=== PATIENT | female | born 1995 | race Caucasian/White ===

== ENCOUNTER 2018-07-17 10:15 | Emergency (ER) | payer MEDICAID, SELFPAY ==
[2018-07-17 10:25] VITALS: BP 105/73; PULSE 68; RESP 16; TEMP 36.8; O2SAT 99
--- NOTE | 2018-07-17 10:41 | DI.RAD_ITS ---
SYMPTOM/DIAGNOSIS: FELL ON OUTSTRETCHED HAND, PAIN LEFT HAND AND LEFT WRIST: There is an oblique nondisplaced, intra-articular fracture of the lateral aspect of the distal left radius. There is a nondisplaced fracture of the ulnar styloid process. No other fracture or dislocation is seen in the left wrist or hand. IMPRESSION: Fractures involving the distal radius and ulna as described above.
--- NOTE | 2018-07-17 10:42 | W.ED.GENAD ---
Discharge Plan Disposition Patient Disposition: HOME Condition: Fair Discharge Details Chief Complaint: Orthopedic Clinical Impression: Distal radial fracture Primary Care Provider: Blanka Funes ED Provider: Enriqueta Maynard Home Meds and New Rx's Prescriptions: Continue medroxyprogesterone [Depo-Provera] 150 MG/1 ML syringe 150 mg IM [id number] Qty: 1 RF: 4 melatonin-pyridoxine (vit B6) [Melatonin (with B6)] 1 EACH tablet 1 tab PO HS RF: 0 acetaminophen [Tylenol] 325 MG tablet 650 mg PO Q4H PRN PRNQty: 30 RF: 0 ibuprofen 400 MG tablet 400 mg PO Q6H PRN PRNQty: 30 RF: 0 Discharge Instructions Instructions: Wrist Fracture in Adults (ED) Additional Instructions: Encourage rest, ice, elevation. Tylenol and/or ibuprofen as needed for discomfort. You may take 600mg Ibuprofen every 6 hours, 1,000mg of Tylenol every 6 hours. Keep splint on until evaluated by orthopedics. Please call orthopedics tomorrow morning to schedule follow-up. If you develop new or worsening symptoms please seek care urgently once again Referrals: Vinny Brown MD [ [facility] STAFF PHYSICIAN] - 1 week ([phone]) Discharge Data Discharge Date/Time-TO BE ENTERED AT DEPARTURE: 07/17/18 12:30 Medical Decision Making [facility] Narrative Medical decision making narrative: Patient is a 22-year-old xhcbq-mnba-wgjeoaxj female presenting today with chief complaint of left wrist pain. She reports that prior to arrival she was going over a rock when she fell on her outstretched left hand. Since that time has been having pain along the radial side of her left wrist that extends into her hand. She denies any altered sensation. Denies other injury at the fall. Did not strike her head, no loss of consciousness. Denies any numbness or tingling. He does note a abrasion to the anterior radial side of the left wrist. Has not had anything as of yet. Nursing staff is immobilized the wrist and applied ice. We will give Tylenol and ibuprofen obtain imaging XR reviewed by radiologist and significant for nondisplaced fractures of the distal radius and ulna. Discussed findings with the patient. Patient will be placed in splint for immobilization. Encouraged rest, ice, elevation. Tylenol and/or Motrin as needed for discomfort. Patient was fitted with a plaster splint, evaluated after with noted to be neurovascularly intact. ADvised f/u with orthopedics, she will contact them tomorrow. Discussed new/worsening symptoms and when to seek care urgently once again. All of her questions and concerns were addressed, she isin agreement with this plan. HPI - General Adult General Mode of arrival: ambulatory. Date/Time Provider Initiated Documentation: 07/17/18 10:40. Limitations to Documentation: no limitations. Information obtained by: patient. History of Present Illness 22 year old F presents to the emergency department with the chief complaint of Left wrist and hand pain, described as moderate, Quality is described as stabbing and aching, and is localized to the left and upper extremity. Patient reports no radiation. Patient started experiencing this minute(s) (30) and it has been constant. Immobilization improves symptom(s), Movement worsens symptoms . Patient notes no other symptoms.. Patient did receive the following treatments prior to arrival, none Related Data Home Medications Medication Instructions Recorded Confirmed melatonin-pyridoxine (vit B6) 1 tab PO HS 01/08/16 07/17/18 [Melatonin (with B6)] Previous Rx's Medication Instructions Recorded acetaminophen [Tylenol] 650 mg PO Q4H PRN PRN #30 tab 11/29/17 ibuprofen 400 mg PO Q6H PRN PRN #30 tablet 11/29/17 medroxyprogesterone [Depo-Provera] 150 mg IM [id number] #1 syringe 06/28/18 Allergies Allergy/AdvReac Type Severity Reaction Status Date / Time lobster Allergy Uncoded 07/17/18 10:29 General Stated Complaint: Orthopedic ZEUS: 3 PFSH Family History Mother No problems noted. Father Macular degeneration Brother No problems noted. Grandfather No problems noted. Grandfather No problems noted. Grandmother No problems noted. Grandmother No problems noted. Medical History Urinary tract infection Social History Smoking/Tobacco Use Status: Never Surgical History Appendectomy (11/28/17) Breast, Lumpectomy (01/08/16) Course Vital Signs Temperature 36.8 C 07/17/18 10:25 Pulse 68 07/17/18 10:25 Respiratory Rate 16 07/17/18 10:25 Blood Pressure 105/73 07/17/18 10:25 Pulse Oximetry 99 07/17/18 10:25 Temperature 36.8 C 07/17/18 10:25 Pulse 68 07/17/18 10:25 Respiratory Rate 16 07/17/18 10:25 Blood Pressure 105/73 07/17/18 10:25 Pulse Oximetry 99 07/17/18 10:25
--- NOTE | 2018-07-17 10:45 | ED.GENADUL_ITS ---
Discharge Plan Disposition Patient Disposition: HOME Condition: Fair Discharge Details Chief Complaint: Orthopedic Clinical Impression: Distal radial fracture Primary Care Provider: Blanka Funes ED Provider: Enriqueta Maynard Home Meds and New Rx's Prescriptions: Continue medroxyprogesterone [Depo-Provera] 150 MG/1 ML syringe 150 mg IM [id number] Qty: 1 RF: 4 melatonin-pyridoxine (vit B6) [Melatonin (with B6)] 1 EACH tablet 1 tab PO HS RF: 0 acetaminophen [Tylenol] 325 MG tablet 650 mg PO Q4H PRN PRNQty: 30 RF: 0 ibuprofen 400 MG tablet 400 mg PO Q6H PRN PRNQty: 30 RF: 0 Discharge Instructions Instructions: Wrist Fracture in Adults (ED) Additional Instructions: Encourage rest, ice, elevation. Tylenol and/or ibuprofen as needed for discomfort. You may take 600mg Ibuprofen every 6 hours, 1,000mg of Tylenol every 6 hours. Keep splint on until evaluated by orthopedics. Please call orthopedics tomorrow morning to schedule follow-up. If you develop new or worsening symptoms please seek care urgently once again Referrals: Vinny Brown MD [ [facility] STAFF PHYSICIAN] - 1 week ([phone]) Discharge Data Discharge Date/Time-TO BE ENTERED AT DEPARTURE: 07/17/18 12:30 Medical Decision Making [facility] Narrative Medical decision making narrative: Patient is a 22-year-old eatus-eamn-zqjojqzp female presenting today with chief complaint of left wrist pain. She reports that prior to arrival she was going over a rock when she fell on her outstretched left hand. Since that time has been having pain along the radial side of her left wrist that extends into her hand. She denies any altered sensation. Denies other injury at the fall. Did not strike her head, no loss of consciousness. Denies any numbness or tingling. He does note a abrasion to the anterior radial side of the left wrist. Has not had anything as of yet. Nursing staff is immobilized the wrist and applied ice. We will give Tylenol and ibuprofen obtain imaging XR reviewed by radiologist and significant for nondisplaced fractures of the distal radius and ulna. Discussed findings with the patient. Patient will be placed in splint for immobilization. Encouraged rest, ice, elevation. Tylenol and/or Motrin as needed for discomfort. Patient was fitted with a plaster splint, evaluated after with noted to be neurovascularly intact. ADvised f/u with orthopedics, she will contact them tomorrow. Discussed new/worsening symptoms and when to seek care urgently once again. All of her questions and concerns were addressed , she isin agreement with this plan. HPI - General Adult General Mode of arrival: ambulatory . Date/Time Provider Initiated Documentation: 07/17/18 10:40 . Limitations to Documentation: no limitations . Information obtained by: patient . History of Present Illness 22 year old F presents to the emergency department with the chief complaint of Left wrist and hand pain, described as moderate, Quality is described as stabbing and aching, and is localized to the left and upper extremity. Patient reports no radiation. Patient started experiencing this minute(s) (30 ) and it has been constant. Immobilization improves symptom(s), Movement worsens symptoms . Patient notes no other symptoms.. Patient did receive the following treatments prior to arrival, none Related Data Home Medications Medication Instructions Recorded Confirmed melatonin-pyridoxine (vit B6) 1 tab PO HS 01/08/16 07/17/18 [Melatonin (with B6)] Previous Rx's Medication Instructions Recorded acetaminophen [Tylenol] 650 mg PO Q4H PRN PRN #30 tab 11/29/17 ibuprofen 400 mg PO Q6H PRN PRN #30 tablet 11/29/17 medroxyprogesterone [Depo-Provera] 150 mg IM [id number] #1 syringe 06/28/18 Allergies Allergy/AdvReac Type Severity Reaction Status Date / Time lobster Allergy Uncoded 07/17/18 10:29 General Stated Complaint: Orthopedic ZEUS: 3 PFSH Family History Mother No problems noted. Father Macular degeneration Brother No problems noted. Grandfather No problems noted. Grandfather No problems noted. Grandmother No problems noted. Grandmother No problems noted. Medical History Urinary tract infection Social History Smoking/Tobacco Use Status: Never Surgical History Appendectomy (11/28/17) Breast, Lumpectomy (01/08/16) Course Vital Signs Temperature 36.8 C 07/17/18 10:25 Pulse 68 07/17/18 10:25 Respiratory Rate 16 07/17/18 10:25 Blood Pressure 105/73 07/17/18 10:25 Pulse Oximetry 99 07/17/18 10:25 Temperature 36.8 C 07/17/18 10:25 Pulse 68 07/17/18 10:25 Respiratory Rate 16 07/17/18 10:25 Blood Pressure 105/73 07/17/18 10:25 Pulse Oximetry 99 07/17/18 10:25
[2018-07-17] MEDS: Ibuprofen 600 MG TAB PO (11:18)
[2018-07-17] MEDS: Acetaminophen 500 MG TAB 1000 MG PO (11:18)
--- NOTE | 2018-07-17 12:05 | DI.VRAD_ITS ---
EXAM: XR Left Hand Complete, 3 or More Views CLINICAL HISTORY: 22 years old, female; Injury or trauma; Fall; Initial encounter; Sprain or strain; Wrist; Left TECHNIQUE: Frontal, lateral and oblique views of the left hand. COMPARISON: No relevant prior studies available. FINDINGS: Nondisplaced fracture through the lateral aspect of the distal radius extending into the radiocarpal joint without significant joint incongruity. No other definite fractures identified. No radiopaque foreign bodies. Joint spaces otherwise well-maintained. IMPRESSION: Nondisplaced fracture through the lateral aspect of the distal radius extending into the radiocarpal joint without significant joint incongruity. Dictated and Authenticated by: Arsenio Hairston MD. Ordering:ALTON NUR MD
--- NOTE | 2018-07-17 12:08 | DI.VRAD_ITS ---
EXAM: XR Left Wrist Complete, 3 or More Views CLINICAL HISTORY: 22 years old, female; Injury or trauma; Fall; Initial encounter; Sprain or strain; Wrist; Left TECHNIQUE: Frontal, lateral and oblique views of the left wrist. COMPARISON: No relevant prior studies available. FINDINGS: Nondisplaced fracture through the lateral aspect of the distal radius extending into the radiocarpal joint without significant joint incongruity. Suggestion also of a nondisplaced ulnar styloid fracture. No additional fractures identified. No radiopaque foreign bodies. IMPRESSION: Nondisplaced fracture through the lateral aspect of the distal radius extending into the radiocarpal joint without significant joint incongruity. Nondisplaced ulnar styloid fracture Dictated and Authenticated by: Arsenio Hairston MD. Ordering:ALTON NUR MD
== END 2018-07-17 12:30 | disposition home or self-care (01) ==
PROVIDERS: Emergency Provider Physician Assistant
DX: S52.502A Unspecified fracture of the lower end of left radius, initial encounter for closed fracture (principal); W01.0XXA Fall on same level from slipping, tripping and stumbling without subsequent striking against object, initial encounter; Y93.K9 Activity, other involving animal care
CPT/HCPCS: 29125; 99284; 73110; 73130; 99281

== ENCOUNTER 2018-07-25 14:00 | Outpatient (CLI) | payer MEDICAID, SELFPAY ==
--- NOTE | 2018-07-25 13:19 | DI.RAD_ITS ---
SYMPTOM/DIAGNOSIS: F/U FX LEFT WRIST: Three views. Comparison is made with 07/17/18. There has been no change in alignment of the nondisplaced fracture involving the intra-articular fracture involving the distal left radius or the nondisplaced fracture of the ulnar styloid process. No new fractures or dislocations are appreciated.
== END 2018-07-25 14:20 ==
PROVIDERS: Visit Provider Student in an Organized Health Care Education/Training Program
DX: S52.515D Nondisplaced fracture of left radial styloid process, subsequent encounter for closed fracture with routine healing (principal)
CPT/HCPCS: 73110

== ENCOUNTER 2018-08-01 14:03 | Outpatient (CLI) | payer MEDICAID, SELFPAY ==
--- NOTE | 2018-08-01 13:57 | DI.RAD_ITS ---
SYMPTOM/DIAGNOSIS: DISTAL RADIUS FRACTURE LEFT LEFT WRIST: 08/01 Two views were obtained and show previously described fracture of the distal radius which remains essentially nondisplaced with the wrist in a cast.
== END 2018-08-01 14:23 ==
PROVIDERS: Visit Provider Student in an Organized Health Care Education/Training Program
DX: S52.515D Nondisplaced fracture of left radial styloid process, subsequent encounter for closed fracture with routine healing (principal)
CPT/HCPCS: 73100

== ENCOUNTER 2018-08-08 16:00 | Outpatient (REF) | payer MEDICAID, SELFPAY | END 2018-08-08 16:20 | LOC: LBN 16:00 | DX: Z12.4 Encounter for screening for malignant neoplasm of cervix (principal); Z53.8 Procedure and treatment not carried out for other reasons ==

== ENCOUNTER 2018-08-19 08:28 | Outpatient (CLI) | payer MEDICAID, SELFPAY ==
--- NOTE | 2018-08-19 08:24 | DI.RAD_ITS ---
SYMPTOM/DIAGNOSIS: F/U FX LEFT WRIST: Two views were obtained with the wrist in a cast. Previously described fracture of the distal radius again noted with no gross interval change in alignment of the fracture fragments in comparison with the examination of 07/17.
== END 2018-08-19 08:48 ==
PROVIDERS: Visit Provider Physician Assistant
DX: S52.515D Nondisplaced fracture of left radial styloid process, subsequent encounter for closed fracture with routine healing (principal)
CPT/HCPCS: 73100

== ENCOUNTER 2018-09-19 14:04 | Outpatient (CLI) | payer MEDICAID, SELFPAY ==
--- NOTE | 2018-09-19 14:10 | DI.RAD_ITS ---
SYMPTOMS/DIAGNOSIS: F/U LT RADIAL STYLOID FX LEFT WRIST: Two views were obtained and show healing fracture of the distal radius with no gross interval change in alignment in comparison with examination of 08/01. Ulnar styloid fracture again noted as well.
== END 2018-09-19 14:24 ==
PROVIDERS: Visit Provider Student in an Organized Health Care Education/Training Program
DX: S52.502D Unspecified fracture of the lower end of left radius, subsequent encounter for closed fracture with routine healing (principal)
CPT/HCPCS: 73100

== ENCOUNTER 2019-08-13 15:59 | Emergency (ER) | payer MEDICAID, SELFPAY ==
[2019-08-13 16:03] VITALS: BP 109/70; PULSE 92; RESP 20; TEMP 36.7; O2SAT 99
--- NOTE | 2019-08-13 16:59 | W.ED.GENAD ---
Discharge Plan Disposition Patient Disposition: HOME Condition: Good Discharge Details Chief Complaint: HeadInjury Clinical Impression: Concussion Primary Care Provider: Blanka Funes ED Provider: Hong Black Home Meds and New Rx's Prescriptions: New meclizine 25 mg tablet 25 mg PO TID Qty: 14 RF: 0 No Action dimenhydrinate [Dramamine] 50 mg tablet 50 mg PO Q4H PRN (Reason: nausea and vomiting) RF: 0 melatonin-pyridoxine (vit B6) [Melatonin (with B6)] 1 EACH tablet 1 tab PO HS PRNRF: 0 acetaminophen [Tylenol] 325 MG tablet 650 mg PO Q4H PRN PRNQty: 30 RF: 0 ibuprofen 400 MG tablet 400 mg PO Q6H PRN PRNQty: 30 RF: 0 Discharge Instructions Instructions: Concussion (ED) Additional Instructions: You have a concussion secondary to your fall. At this time there is no clinical evidence of a concerning intracranial pathology. If at any point your symptoms worsen, please return for reassessment. Your dizziness is secondary to your concussion. Please take the meclizine as needed. Please drink plenty of fluids. Avoid any activities which could cause trauma to your head again. Please make sure that you are resting over the next few days but do not merely staying at cold dark room as this seems to worsen the long-term prognosis for concussions. You may return to your normal activities once you have been symptom-free for 1 week. If you notice any worsening of your symptoms, or any new symptoms such as vomiting, diarrhea, fever, chills, shortness of breath, chest pain, numbness, weakness, or fainting , please return immediately to the emergency department for reevaluation. Please follow up with your primary care provider as soon as possible for reassessment and reevaluation. As always, it was a pleasure participating in your medical care today. Stand Alone Forms: School Release Referrals: Blanka Funes NP [Primary Care Provider] - Discharge Data Discharge Date/Time-TO BE ENTERED AT DEPARTURE: 08/13/19 17:08 Medical Decision Making This is a very pleasant 23-year-old female who presents for evaluation of mild headache after fall. Few hours ago she was walking her dog [place] when she got tripped by 2 dogs, fell and hit her head on the softer. She is uncertain if she lost consciousness however she felt slightly dizzy and disoriented shortly afterwards. She is still had very mild headache, and does feel slightly dizzy and off when she gets up and walks around but is able to ambulate well, is been walking around throughout the rest of the day without any difficulty. Physical exam demonstrates no evidence of significant trauma. No signs of significant cranial trauma, midline C-spine tenderness or other abnormality. She does demonstrate a notably normal neurologic exam aside from mild horizontal nystagmus. Signs and symptoms are concerning for mild concussion, and secondary mild peripheral vertigo secondary to this. She has been given meclizine for this and feels well. At this time I did discuss potential further CT imaging, as well as the risks and benefits of this, and the patient would like to hold off on any imaging at this time. Patient feels well and would like to go home. Signs and symptoms are clinically consistent with concussion. Recommend close follow-up with her PCP, hydration, and rest. She will be given a work note for the time being. I have extensively reviewed the treatment plan and discharge instructions with the patient. I have addressed all patient concerns at this time. The patient was made aware of what symptoms to monitor for that would warrant a return to the emergency department. Discussed the plan with the patient, they demonstrate verbal understanding and agreement with our assessment and plan at this time. HPI General Date/Time Provider Initiated Documentation: 08/13/19 16:47. HPI Narrative: This is a 23-year-old female with no significant past medical history who presents today for evaluation of questionable concussion. Patient was top at [employer], when 2 dogs ran in front of her, causing her to trip fall and hit her head on dirt. She may have had a brief loss of consciousness but she is uncertain. She did feel slightly dizzy and out of it when she did get up immediately thereafter. She has been able to walk ambulate and perform all activities well without any difficulty. She does admit to a very mild headache, she denies any significant neck pain. She denies any ringing in her ear. She denies any nausea, vomiting, chest pain. She has no other complaints at this time. No other modifying factors. Related Data Home Medications Medication Instructions Recorded Confirmed melatonin-pyridoxine (vit B6) 1 tab PO HS PRN 01/08/16 08/13/19 [Melatonin (with B6)] acetaminophen [Tylenol] 650 mg PO Q4H PRN PRN #30 tab 11/29/17 08/13/19 ibuprofen 400 mg PO Q6H PRN PRN #30 tab 11/29/17 08/13/19 dimenhydrinate 50 mg tablet 50 mg PO Q4H PRN tab 05/05/19 08/13/19 meclizine 25 mg PO TID #14 tab 08/13/19 Previous Rx's Medication Instructions Recorded acetaminophen [Tylenol] 650 mg PO Q4H PRN PRN #30 tab 11/29/17 ibuprofen 400 mg PO Q6H PRN PRN #30 tab 11/29/17 meclizine 25 mg PO TID #14 tab 08/13/19 Allergies Allergy/AdvReac Type Severity Reaction Status Date / Time lobster Allergy Uncoded 05/05/19 09:00 General Stated Complaint: HeadInjury ZEUS: 3 Review of Systems Review of Systems ROS Unobtainable: All systems reviewed & are unremarkable except as noted in HPI and below PFSH Medical History (Updated 05/05/19 @ 09:44 by Ria Doherty NP) Contraception (Acute) 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) Urinary tract infection (Resolved) Surgical History (Updated 05/05/19 @ 09:38 by Ria Doherty NP) Appendectomy (11/28/17) Breast, Lumpectomy (01/08/16) right breast Wrist fracture, left (Resolved) 07/2018 Social History (Updated 08/09/18 @ 08:33 by Nilda Rodriguez) Smoking/Tobacco Use Status: Never Alcohol Intake: current Alcohol Intake frequency: holidays/special occasions only Alcohol type: hard liquor Drug use: Never Substance use type: former substance user Adopted: No Foster care: No Household members: other Details: 2 Pets and animals: Yes Pets and animals: cat(s) and dog(s) What type of physical activity do you participate in: walking Duration: 30-45 minutes/day Frequency: 3-4 times per week Saskia/Zoroastrianism: SPIRITUAL Special saskia needs: No Seatbelt use: always Do you feel safe in your relationship?: Yes Exam Narrative Exam Narrative: 1.Const: Well-nourished, Well-developed, appearing stated age 2.Eyes: PERRL, no conjunctival injection, and symmetrical lids. Mild horizontal nystagmus, no rotatory or vertical nystagmus. Negative test of skew, positive head impulse test. 3.ENT: Atraumatic external nose and ears. Moist MM. Neck: Symmetric, trachea midline, No thyromegaly. There is no evidence of raccoon eyes, hutton sign, CSF rhinorrhea, mastoid tenderness, cranial crepitus, hemotympanum, exophthalmos, or hyphema. Patient demonstrates intact dentition with no signs of tooth avulsion or fracture, no signs of jaw deformity, no evidence of a LeFort's fracture, with an intact palate, nose and orbital region. There is no evidence of a nasal septal hematoma. No proptosis. Jaw closes symmetrically. Airway is clear. 4.CVS: +S1/S2, No murmurs or gallops. Peripheral pulses 2+ and equal in all extremities. Brisk capillary refill in all extremities. 5.RESP: Unlabored respiratory effort. Clear to auscultation bilaterally. No wheezes rales or rhonchi 6.GI: Soft, Nontender/Nondistended, No hepatosplenomegaly. No guarding or rebound. 7.MSK: Normocephalic/Atraumatic, Extremities w/o deformity or ttp No cyanosis or clubbing, Normal movement of all extremities no midline tenderness to palpation over the CTLS spine. Normal ROM in flexion, extension, side bend, and rotation. Patient has +5 out of 5 strength in the lower extremities in dorsiflexion and plantarflexion, knee flexion and extension, hip flexion and extension. There is +2 over 2 dorsalis pedis pulses bilaterally. There is normal sensation to the skin with light touch at the foot, knee, and hip. Normal saddle sensation. Good sensation over the deep sural nerve area bilaterally. Rectal exam deferred. Reflexes are +2 over 4 in the patellar reflex bilaterally. +5 out of 5 strength in the medial, ulnar, radial nerve distribution bilaterally in the hands as well as intact light touch sensation to these dermatomes on the hands 8.Skin: Warm, Dry. No rashes or lesions. 9.Neuro: piccolo mechanic II-XII grossly intact. Sensation grossly intact, no focal neurologic deficits. All 6 cardinal planes of vision are fully intact. No evidence of rotatory or vertical nystagmus. The patient demonstrated a normal ognxfm-xkoe-ebzxxc, good dexterity. There was no evidence of dysdiadochokinesia. Patient was able to ambulate without difficulty. There was no wide-based gait. Romberg, and goas-vb-aaiy are both normal on testing. Sensation was intact bilaterally as well as muscle strength bilaterally for all extremities. Patient was able to verbalize butter cup with no slurring, or miss pronunciation. 10.Psych: (AAO) x3. Appropriate mood and affect Course Vital Signs Vital signs: Vital Signs Temperature 36.7 C 08/13/19 16:03 Pulse 92 H 08/13/19 16:03 Respiratory Rate 20 08/13/19 16:03 Blood Pressure 109/70 08/13/19 16:03 Pulse Oximetry 99 08/13/19 16:03 Temperature 36.7 C 08/13/19 16:03 Temperature Source Skin 08/13/19 16:03 Pulse 92 H 08/13/19 16:03 Respiratory Rate 20 08/13/19 16:03 Respiratory Effort Non-Labored 08/13/19 16:09 Respiratory Depth Normal 08/13/19 16:09 Respiratory Pattern Normal 08/13/19 16:09 Blood Pressure 109/70 08/13/19 16:03 Blood Pressure Position Sitting 08/13/19 16:03 Pulse Oximetry 99 08/13/19 16:03 Oxygen Delivery Method Room Air 08/13/19 16:03 Oxygen Flow Rate 0 08/13/19 16:03
[2019-08-13] MEDS: Meclizine 25 MG TAB PO (17:04)
== END 2019-08-13 17:08 | disposition home or self-care (01) ==
PROVIDERS: Emergency Provider Student in an Organized Health Care Education/Training Program
DX: S06.0X0A Concussion without loss of consciousness, initial encounter (principal); W01.0XXA Fall on same level from slipping, tripping and stumbling without subsequent striking against object, initial encounter
CPT/HCPCS: 99283

== ENCOUNTER 2020-05-31 21:11 | Outpatient (REF) | payer MEDICAID, SELFPAY ==
[2020-05-31 21:43] LABS: Bilirubin Negative (Negative); Blood Moderate (Negative); Clarity Cloudy (Clear); Glucose Negative (Negative); Ketones Negative (Negative); Leukocyte Esterase Moderate (Negative); Nitrite Negative (Negative); Specific Gravity 1.025 (1.005-1.025)
[2020-05-31 21:51] LABS: Bacteria Moderate HPF (Negative); C & S Indicated? Yes; Crystals Negative HPF (Negative); Epithelial Cells Moderate HPF (Negative); Mucus Negative (Negative); WBC >50 HPF (0-5)
== END 2020-05-31 21:31 ==
LOC: LBN 21:11
PROVIDERS: Visit Provider Nurse Practitioner Family
DX: M54.5 Low back pain (principal)
CPT/HCPCS: 81003; 81015; 87086

== ENCOUNTER 2020-10-22 09:02 | Outpatient (REF) | payer MEDICAID, SELFPAY ==
--- NOTE | 2020-10-22 08:30 | PAPFT_PTH ---
PATIENT: Flaca Cuevas LOC: [facility] U#:[id number] AGE/SX: 25/F ROOM: RE10/22/[address]: Blanka Funes APRN : 1995 BED: DIS: 10/22/2020 SPEC #: [id number] RECD: 10/22/20 12:48 STATUS: AKANKSHA REEmma #: [id number] MIGUEL ANGEL: 10/22/20 08:[address]: Blanka Funes DEPT: [facility] Cytology RECD BY: Zoë Sheth Tissues: 1 - CX/ENDOCX FOR PAP SMEARS Procedures: PAP THIN PREP/UVM Screening Comments: [id number]
== END 2020-10-22 09:22 ==
LOC: LBN 09:02
DX: Z12.4 Encounter for screening for malignant neoplasm of cervix (principal)
CPT/HCPCS: 88142

== ENCOUNTER 2020-11-04 12:58 | Outpatient (CLI) | payer MEDICAID, SELFPAY ==
[2020-11-05 21:27] LABS: COVID-19 RT-PCR Result NEGATIVE (Negative)
== END 2020-11-04 13:18 ==
DX: Z20.828 Contact with and (suspected) exposure to other viral communicable diseases (principal)
CPT/HCPCS: U0003

== ENCOUNTER 2021-02-14 04:13 | Emergency (ER) | payer MEDICAID, SELFPAY ==
[2021-02-14 04:17] VITALS: BP 126/63; PULSE 87; RESP 36; TEMP 36.5; O2SAT 98
--- NOTE | 2021-02-14 04:24 | ED.GENADUL_ITS ---
Discharge Plan Disposition Patient Disposition: HOME Condition: Good Discharge Details Clinical Impression: Panic attack Primary Care Provider: Blanka Funes ED Provider: Hua Solorzano [place] Meds and New Rx's Prescriptions: Continued melatonin 5 mg tablet 5 mg PO HS PRNRF: 0 dimenhydrinate [Dramamine] 50 mg tablet 50 mg PO Q4H PRN (Reason: nausea and vomiting) RF: 0 methylphenidate HCl 10 mg tablet 10 mg PO BID MDD 10mg Qty: 60 RF: 0 acetaminophen [Tylenol] 325 MG tablet 650 mg PO Q4H PRN PRNQty: 30 RF: 0 ibuprofen 400 MG tablet 400 mg PO Q6H PRN PRNQty: 30 RF: 0 sertraline 50 mg tablet 50 mg PO DAILY RF: 0 Discharge Instructions Instructions: Panic Attack (ED) Additional Instructions: Continue current medications and follow-up with primary care for further management as needed. Return to ED if syncope, chest pain, shortness of breath, other concerns Referrals: Blanka Funes, [employer] OPERATOR [Primary Care Provider] - Medical Decision Making Patient with history of anxiety and panic attacks but typically able to control at home. Unable to get control of this particular panic attack and presents to ED. Patient denies any drug use. She denies any triggers. She denies any chest pain or shortness of breath. She denies . She is on her menstrual period at this time. We will continue oral Ativan and observe for improvement. 6:00 -patient feels much better after some Ativan and Zofran. Ready for discharge home. Follow-up with primary care for further management as needed. Return to ED if syncope, shortness of breath, chest pain, other concerns. HPI General Mode of arrival: ambulatory . Date/Time Provider Initiated Documentation: 02/14/21 04:23 . Limitations to Documentation: no limitations . Information obtained by: patient and RN notes reviewed . HPI Narrative: Patient presents to ED with panic attack. Patient with history of anxiety and panic attacks but typically able to control them at home. This panic attack has been ongoing for most 5 hours now. She has been unable to calm herself down. There was no trigger. In general she takes her sertraline to help control anxiety, but as of late has not been remembering to take it. She develops nausea when she is anxious like this. She has not had any vomiting. She does not have any chest pain or shortness of breath. She had a roommate drive her here because she did not know what else to do. Related Data Home Medications Medication Instructions Recorded Confirmed acetaminophen [Tylenol] 650 mg PO Q4H PRN PRN #30 tab 11/29/17 02/14/21 ibuprofen 400 mg PO Q6H PRN PRN #30 tab 11/29/17 02/14/21 dimenhydrinate 50 mg tablet 50 mg PO Q4H PRN tab 05/05/19 02/14/21 melatonin 5 mg tablet 5 mg PO HS PRN 08/14/19 02/14/21 methylphenidate HCl 10 mg tablet 10 mg PO BID #60 tab MDD 10mg 12/10/20 02/14/21 sertraline 50 mg PO DAILY 02/14/21 02/14/21 Previous Rx's Medication Instructions Recorded acetaminophen [Tylenol] 650 mg PO Q4H PRN PRN #30 tab 11/29/17 ibuprofen 400 mg PO Q6H PRN PRN #30 tab 11/29/17 methylphenidate HCl 10 mg tablet 10 mg PO BID #60 tab MDD 10mg 12/10/20 Allergies Allergy/AdvReac Type Severity Reaction Status Date / Time lobster Allergy Uncoded 02/14/21 04:30 General Stated Complaint: Anxiety ZEUS: 4 Review of Systems Narrative: As documented in HPI otherwise negative as below. 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 Maternal Grandfather No problems noted. Paternal Grandfather No problems noted. Maternal Grandmother No problems noted. Paternal Grandmother Diabetes Social History Smoking/Tobacco Use Status: Never Smoking risk assessment performed?: Yes Alcohol Intake: current Alcohol Intake frequency: holidays/special occasions only Alcohol type: hard liquor Drug use: Never Substance use type: former substance user Counseling given: No Counseling provided: none Adopted: No Foster care: No Household members: friend(s) Housing: house Do you need help understanding health information?: Rarely Pets and animals: Yes Pets and animals: cat(s) and dog(s) Sexually active: No Do you think of yourself as: straight/heterosexual Current gender identity: female What is your relationship status?: never How often do you talk on the phone with friends or family?: once per week How often do you get together with friends or relatives?: three or more times per week How often do you attend anabaptist or mandaeism services?: decline to answer Do you belong to any clubs or organized social groups?: no Panel score (0-1 are the most socially isolated patients): 1 What type of physical activity do you participate in: walking Duration: 30-45 minutes/day Frequency: daily [place]ia/Adventism: SPIRITUAL Special saskia needs: No Seatbelt use: always Helmet use: Yes Helmet use: always 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 HEENT: NC/AT. Normal facial exam. Eyes: Normal conjunctiva and sclera. Neck: Supple. Trachea midline. Lungs: Normal respiratory effort. Lungs are clear. Cor: RRR without murmur/gallop. Neuro: A+O x 3. Normal speech, mentation, gait. Cranial nerves II - XII grossly intact. No gross motor or sensory deficit. Skin: Warm and dry without rash. Course Vital Signs Vital signs: Vital Signs Temperature 97.7 F 02/14/21 04:17 Pulse 87 02/14/21 04:17 Respiratory Rate 36 H 02/14/21 04:17 Blood Pressure 126/63 02/14/21 04:17 Pulse Oximetry 98 02/14/21 04:17 Temperature 97.7 F 02/14/21 04:17 Temperature Source Skin 02/14/21 04:17 Pulse 87 02/14/21 04:17 Respiratory Rate 36 H 02/14/21 04:17 Respiratory Effort Non-Labored 02/14/21 04:22 Blood Pressure 126/63 02/14/21 04:17 Blood Pressure Position Sitting 02/14/21 04:17 Pulse Oximetry 98 02/14/21 04:17 Oxygen Delivery Method Room Air 02/14/21 04:17 Oxygen Flow Rate 0 02/14/21 04:17 Pain Level 0 02/14/21 04:17
[2021-02-14] MEDS: LORazepam 0.5 MG TAB PO ×2 (04:39→05:19)
[2021-02-14] MEDS: Ondansetron O.D.T. 4 MG TABEF PO (05:22)
[2021-02-14 06:09] VITALS: BP 109/67; PULSE 76; RESP 16; O2SAT 99
== END 2021-02-14 06:09 | disposition home or self-care (01) ==
PROVIDERS: Emergency Provider Emergency Medicine
DX: F41.0 Panic disorder [episodic paroxysmal anxiety] (principal); R11.0 Nausea
CPT/HCPCS: 99283

== ENCOUNTER 2022-02-11 02:45 | Outpatient (CLI) | payer MEDICAID, SELFPAY ==
[2022-02-11 08:28] LABS: ALT 22 U/L (14-59); AST 17 U/L (15-37); Albumin 4.1 g/dL (3.4-5.0); Alkaline Phosphatase 49 U/L (46-116); Anion Gap 6.9 mmol/L (3-11); BUN 12 mg/dL (7-18); Bilirubin, Total 0.6 mg/dL (0.2-1.0); CO2 29.1 mmol/L (21.0-32.0); CREATININE 0.7 mg/dL (0.55-1.02); Chloride 106 mmol/L (98-107); Glucose 85 mg/dL (74-106); Potassium 3.9 mmol/L (3.5-5.1); Sodium 142 mmol/L (136-145)
== END 2022-02-11 02:46 | disposition home or self-care (01) ==
LOC: LBO 02:45
DX: Z00.00 Encounter for general adult medical examination without abnormal findings (principal); F41.8 Other specified anxiety disorders
CPT/HCPCS: 36415; 80053

== ENCOUNTER 2022-03-07 00:36 | Emergency (ER) | payer MEDICAID, SELFPAY ==
[2022-03-07] VITALS (89 sets, daily range): BP systolic 90–104; BP diastolic 37–64; PULSE 74–131; RESP 13–41; TEMP 37.5–38.3; O2SAT 95–100
--- NOTE | 2022-03-07 01:28 | ED.GENADUL_ITS ---
Discharge Plan Disposition Patient Disposition: HOME Condition: Stable Discharge Details Clinical Impression: Pharyngitis Primary Care Provider: Blanka Funes ED Provider: Tushar Wing Home Meds and New Rx's Prescriptions: New ondansetron 4 mg tablet,disintegrating 4 mg PO Q8H PRN (Reason: nausea and vomiting) Qty: 7 0RF Continued melatonin 5 mg tablet 5 mg PO HS PRN dimenhydrinate [Dramamine] 50 mg tablet 50 mg PO Q4H PRN (Reason: nausea and vomiting) benzoyl peroxide 2.5 % gel 1 applic topical BID Qty: 1 6RF methylphenidate HCl 5 mg tablet 5 mg PO DAILY MDD 5mg Qty: 28 0RF Rx Instructions: Take 5mg in AM acetaminophen [Tylenol] 325 MG tablet 650 mg PO Q4H PRN PRNQty: 30 0RF ibuprofen 400 MG tablet 400 mg PO Q6H PRN PRNQty: 30 0RF Discharge Instructions Instructions: Pharyngitis (ED) Additional Instructions: A COVID test was performed today and results are not yet available. Please maintain home isolation until test result is available and normal. Test results should be available within the next few days. Please drink plenty of fluids to stay hydrated and allow for plenty of rest. Please take ibuprofen over the counter. Take 600mg by mouth every 6 hours as needed for pain. Please contact your primary care physician to arrange follow-up. Return to the ER immediately for any worsening or new concerning symptoms. Stand Alone Forms: Work Release Referrals: Blanka Funes, SUSHANT [Primary Care Provider] - Discharge Data Discharge Date/Time-TO BE ENTERED AT DEPARTURE: 03/07/22 05:14 Medical Decision Making 142??26-year-old female here with sore throat, myalgias, mild cough, fever, difficulty swallowing fluids today secondary to pain. Patient is dehydrated and tachycardic with fever. Concern for viral illness versus strep throat. Plan to treat with Toradol 30 mg IV, Decadron p.o. and IV fluid bolus. -- Labs reviewed: rapid strep neg -- Patient reassessed: HR improved. Still with fever. I reviewed prior medical record - patient had BP at outpatient clinic visit 02/20 of 95/64 - patient at baseline. I will give additional IVF bolus and acetaminophen. -- Patient was reassessed and is feeling much better. Tolerating oral fluids. Patient hemodynamically stable. Usual customary discharge instructions reviewed with the patient. HPI General Mode of arrival: ambulatory . Date/Time Provider Initiated Documentation: 03/07/22 01:06 . Limitations to Documentation: no limitations . Information obtained by: patient . HPI Narrative: 26-year-old female presents with chief complaint of sore throat. Patient notes sore throat started this morning and has persisted. Pain is severe, pain worse with swallowing and she had difficulty taking fluids today. She feels dehydrated. She notes associated postnasal drip, mild cough, fever. Denies rash and no abdominal pain. Patient is fully vaccinated for COVID. No known sick contacts. Related Data Home Medications Medication Instructions Recorded Confirmed acetaminophen 325 mg tablet 650 mg PO Q4H PRN PRN #30 tabs 11/29/17 03/07/22 (Tylenol) ibuprofen 400 mg tablet 400 mg PO Q6H PRN PRN #30 tabs 11/29/17 03/07/22 dimenhydrinate 50 mg tablet 50 mg PO Q4H PRN nausea and 05/05/19 03/07/22 (Dramamine) vomiting melatonin 5 mg tablet 5 mg PO HS PRN 08/14/19 03/07/22 benzoyl peroxide 2.5 % topical gel 1 applic topical BID #1 g 02/02/22 03/07/22 methylphenidate HCl 5 mg tablet 5 mg PO DAILY #28 tabs 02/02/22 03/07/22 ondansetron 4 mg disintegrating 4 mg PO Q8H PRN nausea and 03/07/22 tablet vomiting #7 tabs Previous Rx's Medication Instructions Recorded acetaminophen 325 mg tablet 650 mg PO Q4H PRN PRN #30 tabs 11/29/17 (Tylenol) ibuprofen 400 mg tablet 400 mg PO Q6H PRN PRN #30 tabs 11/29/17 benzoyl peroxide 2.5 % topical gel 1 applic topical BID #1 g 02/02/22 methylphenidate HCl 5 mg tablet 5 mg PO DAILY #28 tabs 02/02/22 ondansetron 4 mg disintegrating 4 mg PO Q8H PRN nausea and 03/07/22 tablet vomiting #7 tabs Allergies Allergy/AdvReac Type Severity Reaction Status Date / Time lobster Allergy Uncoded 03/07/22 00:57 General Stated Complaint: Sorethroat ZEUS: 3 Review of Systems All systems reviewed & are unremarkable except as noted in HPI and below Constitutional Constitutional: Reports fever(s) ENT Ears, Nose, Mouth, and Throat: Reports as per HPI Respiratory Respiratory: Reports cough PFSH All Active Problems (Updated 03/07/22 @ 04:06 by Tushar Wing MD) Pharyngitis (Acute) Acne (Acute) Panic attack (Chronic) Anxiety (Chronic) ADHD (attention deficit hyperactivity disorder) (Chronic) Gender dysphoria in adolescent and adult (Chronic) Encounter for annual physical exam (Acute) Insomnia (Chronic) Contraception (Chronic) 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 Maternal Grandfather No problems noted. Paternal Grandfather No problems noted. Maternal Grandmother No problems noted. Paternal Grandmother Diabetes Social History Smoking/Tobacco Use Status: Never Second Hand Exposure: Yes Smoking risk assessment performed?: Yes Alcohol Intake: current Alcohol Intake frequency: a few times a month Alcohol type: hard liquor Drug use: Never Substance use type: former substance user Counseling given: No Counseling provided: none Adopted: No Foster care: No Household members: friend(s) Housing: apartment Communication Needs: None Do you need help understanding health information?: Never Pets and animals: Yes Pets and animals: cat(s), dog(s) and snake(s) Sexually active: No Do you think of yourself as: straight/heterosexual Current gender identity: female and neither exclusively male nor female What is your relationship status?: never How often do you talk on the phone with friends or family?: twice per week How often do you get together with friends or relatives?: three or more times per week Do you belong to any clubs or organized social groups?: no Panel score (0-1 are the most socially isolated patients): 1 What type of physical activity do you participate in: walking Duration: < 15 minutes/day Frequency: 1-2 times per week [place]ia/[place]ai: SPIRITUAL Special saskia needs: No Seatbelt use: always Helmet use: Yes Helmet use: always 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 Do you feel safe at home: Yes Exam Const General: cooperative and no acute distress HENMT Head: normocephalic General nose exam: external nose normal Face and sinus: normal facial exam Mouth: moist mucous membranes Throat: no peritonsillar masses and other (Difficulty assessing posterior oropharynx as patient significant gag reflex) Other: No trismus, no stridor Eyes Conjunctivae: normal conjunctivae Sclera: normal sclerae Neck Neck: normal visual inspection, trachea midline and supple Resp Auscultation: clear to auscultation bilaterally, no rales, no rhonchi and no wheezes Cardio Rate: tachycardic Rhythm: regular rhythm Heart Sounds: no murmurs GI Palpation: soft, not firm, no guarding, no masses, not rigid and nontender Skin General skin exam: no rashes or lesions noted Neuro General: patient alert, patient awake and tone normal Course Vital Signs Vital signs: Vital Signs Temperature 38.3 C H 03/07/22 00:53 Pulse 123 H 03/07/22 00:53 Respiratory Rate 35 H 03/07/22 00:53 Blood Pressure 103/64 03/07/22 00:53 Pulse Oximetry 96 03/07/22 00:53 Temperature 38.3 C H 03/07/22 00:53 Temperature Source Oral 03/07/22 00:53 Pulse 123 H 03/07/22 00:53 Respiratory Rate 35 H 03/07/22 00:53 Respiratory Effort 03/07/22 00:58 Blood Pressure 103/64 03/07/22 00:53 Blood Pressure Position Sitting 03/07/22 00:53 Pulse Oximetry 96 03/07/22 00:53 Oxygen Delivery Method Room Air 03/07/22 00:53 Oxygen Flow Rate 0 03/07/22 00:53 Pain Level 8 03/07/22 00:53 PAWSS Have you Been Recently Intoxicated or Drunk Within the Last 30 days?: No Have you Ever Experienced Previous Episodes of Alcohol Withdrawal?: No Have you ever Experienced Withdrawal Seizures?: No Have you ever Experienced Delirium Tremens(DT)s?: No Have you ever undergone Alcohol Rehabilitation Treatment (i.e, inpt ot outpatient treatment programs)?: No Have you ever Experienced Blackouts?: No Have you ever Combined Alcohol with other Downers within the last 90 days?: No Have you ever Combined Alcohol with any other Substance of Abuse during the last 90 days?: No Positive Blood Alcohol level on Presentation? [PCS.BAL]: No Evidence of Increased Autonomic Activity (i.e. HR>120, tremor, sweating, agitation, nausea)?: No Result: 0
[2022-03-07] MEDS: Lactated Ringers 1,000 ML 1000 ML IV ×2 (01:45→03:38)
[2022-03-07] MEDS: Ketorolac 30 MG/ML VIAL IVP (01:45)
[2022-03-07 01:56] LABS: Abs Immature Grans 0.01 10^3/uL (0.0-0.06); Absolute Basophil Count 0.05 10^3/uL (0.0-0.2); Absolute Eosinophil Count 0.01 10^3/uL (0.0-0.7); Absolute Lymphocyte Count 0.33 10^3/uL (1.2-3.4); Absolute Monocyte Count 0.55 10^3/uL (0.1-0.8); Absolute Neutrophil Count 2.54 10^3/uL (1.2-6.7); Basophils % 1.4; Eosinophils % 0.3; HCT 37.5 % (36.0-46.0); HGB 12.5 g/dL (11.2-15.7); Immature Grans % 0.3; Lymphocytes % 9.5; MCH 30.1 pg (27.0-33.0); MCHC 33.3 % (32.0-36.0); MCV 90 fL (80-95); MPV 9.5 fL (8.0-11.0); Monocytes % 15.8; Neutrophils % 72.7; Platelet Count 247 10^3/uL (130-400); RBC 4.15 10^6/uL (3.93-5.22); RDW 12.1 % (11.7-14.6); RDW-SD 40.1 fL; WBC 3.49 10^3/uL (4.4-10.8)
[2022-03-07 02:10] LABS: Anion Gap 11.8 mmol/L (3-11); BUN 9 mg/dL (7-18); CO2 22.2 mmol/L (21.0-32.0); CREATININE 0.8 mg/dL (0.55-1.02); Calcium 8.5 mg/dL (8.5-10.1); Chloride 104 mmol/L (98-107); Glucose 113 mg/dL (74-106); Potassium 3.6 mmol/L (3.5-5.1); Sodium 138 mmol/L (136-145)
[2022-03-07] MEDS: Dexamethasone 10 MG/ML VIAL PO (02:59)
[2022-03-07] MEDS: Ondansetron 4 MG/2 ML VIAL IVP (03:00)
[2022-03-07] MEDS: Acetaminophen 325 MG TAB 650 MG PO (03:37)
[2022-03-09 12:18] LABS: COVID-19 RT-PCR UVMMC Result Positive (Negative)
--- NOTE | 2022-03-09 18:49 | W.ED.FU ---
Follow Up Plan: I was notified by lab that Pt tested postive for COVID. I contacted the patient by phone. Pt states that she feels improved and has no concerns at this time. All questions were answered. I discussed RTED precautions, Pt verbalized understanding. Pt does not meet high risk criteria to qualify for paxlovid/mab infusion.
== END 2022-03-07 05:14 | disposition home or self-care (01) ==
PROVIDERS: Emergency Provider Student in an Organized Health Care Education/Training Program
DX: U07.1 COVID-19 (principal); R50.9 Fever, unspecified; R00.0 Tachycardia, unspecified; E86.0 Dehydration; J02.9 Acute pharyngitis, unspecified
CPT/HCPCS: 80048; 87880; 96361; 96374; 96375; 99283; 99284; U0003; 85025; 87081; J1100; J1885; J2405

== ENCOUNTER 2023-03-10 14:39 | Emergency (ER) | payer MEDICAID, SELFPAY ==
[2023-03-10 14:44] VITALS: BP 128/73; PULSE 62; RESP 15; TEMP 37.2; O2SAT 100
--- NOTE | 2023-03-10 15:00 | DI.US_ITS ---
Exam(s) US PELVIS TRANSVAGINAL EXAM: US PELVIS TRANSVAGINAL CLINICAL HISTORY: Severe pelvic pain/ IUD confirmation placement TECHNIQUE: Transabdominal and transvaginal imaging was performed using standard protocol. COMPARISON: CT ABD PELVIS WITH CONTRAST from 11/28/2017 FINDINGS: UTERUS: Anteverted. 6.8 x 3.1 x 3.8 cm Endometrium: 2 mm, IUD noted within the endometrial stripe, peers appropriately positioned. Myometrium: Unremarkable. Cervix: Unremarkable. OVARIES: Right: Cyst or mass: None. Left: Cyst or mass: None. DOPPLER: Color: Symmetric and uniform flow to both ovaries. No hyperemia. CUL-DE-SAC: Free fluid: None. IMPRESSION: 1. Normal-appearing uterus with endometrial stripe within normal limits. IUD in position. 2. Unremarkable bilateral ovaries. DATA REPOSITORY:
[2023-03-10] MEDS: LORazepam 2 MG/ML VIAL 0.5 MG IVP (15:23)
[2023-03-10] MEDS: Ketorolac 15 MG/ML VIAL IVP (15:24)
--- NOTE | 2023-03-10 15:31 | ED.GENADUL_ITS ---
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 Primary Care Provider: Ruperto Don ED Provider: Flaquito Smith Home Meds and New Rx's Prescriptions: No Action melatonin 5 mg tablet 5 mg PO HS PRN dimenhydrinate [Dramamine] 50 mg tablet 50 mg PO Q4H PRN (Reason: nausea and vomiting) Liletta 20.4 mcg/24 hrs (8 yrs) 52 mg intrauterine device 1 device intrauterine ONCE Rx Instructions: as a single dose benzoyl peroxide 2.5 % gel 1 applic topical BID Qty: 1 6RF methylphenidate HCl 5 mg tablet 5 mg PO DAILY MDD 5mg Qty: 28 0RF Rx Instructions: Take 5mg in AM buspirone 15 mg tablet 7.5 mg PO BID Qty: 30 1RF ondansetron 4 mg tablet,disintegrating 4 mg PO Q8H PRN (Reason: nausea and vomiting) Qty: 10 1RF acetaminophen [Tylenol] 325 MG tablet 650 mg PO Q4H PRN PRNQty: 30 0RF ibuprofen 400 MG tablet 400 mg PO Q6H PRN PRNQty: 30 0RF Medical Decision Making Patient presenting to the emergency department for chief complaint of severe pain and discomfort after IUD placement. Patient had IUD placed this morning a nd since placement has had increasing pain and discomfort. Patient states it is sharp severe with intermittent cramping. Patient denies any vaginal bleeding, discharge, urinary or other symptoms. Physical exam shows suprapubic tenderness and guarding. Due to significant and severe tenderness even with external palpation of suprapubic region we deferred on vaginal exam. I do feel there is a high component of anxiety secondary to patient's pain and discomfort. We will plan on obtaining ultrasound to confirm IUD placement and pending these results we will give patient ketorolac and Ativan. HPI General Mode of arrival: ambulatory . Date/Time Provider Initiated Documentation: 03/10/23 14:47 . Limitations to Documentation: no limitations . Information obtained by: patient and RN notes reviewed . History of Present Illness 27 year old F presents to the emergency department with the chief complaint of Severe pain after IUD placement, described as severe, with intensity rated at 10. Quality is described as sharp, and is localized to the pelvis. Patient started experiencing this hour(s) (5) and it has been constant. No relieving factors improve symptom(s), Patient notes no other symptoms.. Patient did receive the following treatments prior to arrival, other (1000mg acetaminophen) Related Data Home Medications Medication Instructions Recorded Confirmed acetaminophen 325 mg tablet 650 mg PO Q4H PRN PRN #30 tabs 11/29/17 03/10/23 (Tylenol) ibuprofen 400 mg tablet 400 mg PO Q6H PRN PRN #30 tabs 11/29/17 03/10/23 dimenhydrinate 50 mg tablet 50 mg PO Q4H PRN nausea and 05/05/19 03/10/23 (Dramamine) vomiting melatonin 5 mg tablet 5 mg PO HS PRN 08/14/19 03/10/23 benzoyl peroxide 2.5 % topical gel 1 applic topical BID #1 g 02/02/22 03/10/23 methylphenidate HCl 5 mg tablet 5 mg PO DAILY #28 tabs 02/02/22 03/10/23 buspirone 15 mg tablet 7.5 mg PO BID #30 tabs 02/01/23 03/10/23 ondansetron 4 mg disintegrating 4 mg PO Q8H PRN nausea and 02/01/23 03/10/23 tablet vomiting #10 tabs levonorgestrel 20.4 mcg/24 hrs (8 1 device intrauterine ONCE 03/10/23 03/10/23 yrs) 52 mg intrauterine device (Liletta) Previous Rx's Medication Instructions Recorded acetaminophen 325 mg tablet 650 mg PO Q4H PRN PRN #30 tabs 11/29/17 (Tylenol) ibuprofen 400 mg tablet 400 mg PO Q6H PRN PRN #30 tabs 11/29/17 benzoyl peroxide 2.5 % topical gel 1 applic topical BID #1 g 02/02/22 methylphenidate HCl 5 mg tablet 5 mg PO DAILY #28 tabs 02/02/22 buspirone 15 mg tablet 7.5 mg PO BID #30 tabs 02/01/23 ondansetron 4 mg disintegrating 4 mg PO Q8H PRN nausea and 02/01/23 tablet vomiting #10 tabs Allergies Allergy/AdvReac Type Severity Reaction Status Date / Time lobster Allergy Other (See Uncoded 03/10/23 11:11 Comment) General Stated 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 ZEUS: 3 Review of Systems Constitutional Constitutional: Denies chills, Denies fever(s) and Reports poor appetite Genitourinary Genitourinary: Reports as per HPI, Denies hematuria, Denies dysuria, Reports pelvic pain and Denies flank pain PFSH All Active Problems Anxiety (Chronic) Insomnia (Chronic) ADHD (attention deficit hyperactivity disorder) (Chronic) Medical History Acne 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 Maternal Grandfather No problems noted. Paternal Grandfather No problems noted. Maternal Grandmother No problems noted. Paternal Grandmother Diabetes Social History Smoking/Tobacco Use Status: Never Second Hand Exposure: Yes Smoking risk assessment performed?: Yes Alcohol Intake: current Alcohol Intake frequency: a few times a month Alcohol type: hard liquor Drug use: Never Substance use type: former substance user Counseling given: No Counseling provided: none Adopted: No Foster care: No Household members: friend(s) Housing: apartment Communication Needs: None Do you need help understanding health information?: Never Pets and animals: Yes Pets and animals: cat(s), dog(s) and snake(s) Sexually active: No Do you think of yourself as: asexual Current gender identity: neither exclusively male nor female What is your relationship status?: never How often do you talk on the phone with friends or family?: twice per week How often do you get together with friends or relatives?: three or more times per week Do you belong to any clubs or organized social groups?: no Panel score (0-1 are the most socially isolated patients): 1 What type of physical activity do you participate in: walking Duration: < 15 minutes/day Frequency: 1-2 times per week [place]/Moravian: SPIRITUAL Special saskia needs: No Seatbelt use: always Helmet use: Yes Helmet use: always Drive intox or ride w/intox belly dump driver: No Do you feel safe at home: Yes History History 0 Para Hx # Term Pregnancies Multiple births Hx # Pregnancies Ectopic pregnancies AB induced Hx Number of Living Children AB spontaneous Exam Const General: cooperative and anxious Orientation: alert, awake and oriented x3 HENMT Mouth: moist mucous membranes Resp Effort & Inspection: normal respiratory effort, able to speak in complete sentences and no respiratory distress Auscultation: clear to auscultation bilaterally Cardio Rate: regular rate Rhythm: regular rhythm Heart Sounds: S1 normal and S2 normal GI Palpation: soft, not firm, guarding other (Suprapubic), no masses, no pulsatile masses, not rigid, no splenomegaly and tender suprapubicly Auscultation: normal bowel sounds General: deferred Skin General skin exam: no rashes or lesions noted Neuro General: patient alert, patient awake, patient oriented x3, moves all extremities and no focal motor deficits Sensory Exam: no sensory deficits noted Course Vital Signs Vital signs: Vital Signs Temperature 37.2 C 03/10/23 14:44 Pulse 62 03/10/23 14:44 Respiratory Rate 15 03/10/23 14:44 Blood Pressure 128/73 03/10/23 14:44 Pulse Oximetry 100 03/10/23 14:44 Temperature 37.2 C 03/10/23 14:44 Temperature Source Temporal Artery Scan 03/10/23 14:44 Pulse 62 03/10/23 14:44 Respiratory Rate 15 03/10/23 14:44 Respiratory Effort Normal 03/10/23 14:46 Blood Pressure 128/73 03/10/23 14:44 Blood Pressure Position Sitting 03/10/23 14:44 Pulse Oximetry 100 03/10/23 14:44 Oxygen Delivery Method Room Air 03/10/23 14:44 Oxygen Flow Rate 0 03/10/23 14:44 Pain Level 10 03/10/23 15:24 Sign Out Sign Out Data: Sign Out Comment: Patient pending ultrasound imaging for confirmation of IUD placement. Last updated by Flaquito Smith NP at 03/10/23 15:38 PAWSS Have you Been Recently Intoxicated or Drunk Within the Last 30 days?: No Have you Ever Experienced Previous Episodes of Alcohol Withdrawal?: No Have you ever Experienced Withdrawal Seizures?: No Have you ever Experienced Delirium Tremens(DT)s?: No Have you ever undergone Alcohol Rehabilitation Treatment (i.e, inpt ot outpatient treatment programs)?: No Have you ever Experienced Blackouts?: No Have you ever Combined Alcohol with other Downers within the last 90 days?: No Have you ever Combined Alcohol with any other Substance of Abuse during the last 90 days?: No Result: 0
[2023-03-10 16:54] VITALS: BP 101/58; PULSE 60; RESP 16; O2SAT 100
== END 2023-03-10 17:01 | disposition home or self-care (01) ==
PROVIDERS: Emergency Provider Nurse Practitioner Acute Care; PCP Nurse Practitioner Family
DX: R10.2 Pelvic and perineal pain (principal); F41.9 Anxiety disorder, unspecified; F90.9 Attention-deficit hyperactivity disorder, unspecified type
CPT/HCPCS: 96374; 96375; 99283; 76830; 76856; J1885; J2060

== ENCOUNTER 2023-06-24 23:22 | Emergency (ER) | payer MEDICAID, SELFPAY ==
[2023-06-24 23:26] VITALS: BP 116/72; PULSE 114; RESP 24; TEMP 36.8; O2SAT 100
[2023-06-24] MEDS: Normal Saline 1,000 ML 1000 ML IV (23:40)
[2023-06-24] MEDS: LORazepam 2 MG/ML VIAL IVP (23:41)
--- NOTE | 2023-06-24 23:43 | ED.GENADUL_ITS ---
Discharge Plan Disposition Patient Disposition: Home Condition: Good Discharge Details Chief Complaint: Anxiety Clinical Impression: Anxiety, Vomiting Primary Care Provider: Ruperto Don ED Provider: Hong Black Home Meds and New Rx's Prescriptions: No Action melatonin 5 mg tablet 5 mg PO HS PRN dimenhydrinate [Dramamine] 50 mg tablet 50 mg PO Q4H PRN (Reason: nausea and vomiting) Liletta 20.4 mcg/24 hrs (8 yrs) 52 mg intrauterine device 1 device intrauterine ONCE Rx Instructions: as a single dose benzoyl peroxide 2.5 % gel 1 applic topical BID Qty: 1 6RF methylphenidate HCl 5 mg tablet 5 mg PO DAILY MDD 5mg Qty: 28 0RF Rx Instructions: Take 5mg in AM buspirone 15 mg tablet 7.5 mg PO BID Qty: 30 1RF ondansetron 4 mg tablet,disintegrating 4 mg PO Q8H PRN (Reason: nausea and vomiting) Qty: 10 1RF acetaminophen [Tylenol] 325 MG tablet 650 mg PO Q4H PRN PRNQty: 30 0RF ibuprofen 600 mg tablet 600 mg PO QID MDD 4 doses PRN (Reason: pain) Qty: 40 0RF Rx Instructions: take with food Discharge Instructions Instructions: Acute Nausea and Vomiting (ED), Anxiety (ED) Additional Instructions: Please take the Zofran as needed for nausea. Please drink plenty fluids and stay well-hydrated. If you notice any worsening of your symptoms, or any new symptoms such as vomiting, diarrhea, fever, chills, shortness of breath, chest pain, numbness, weakness, or fainting , please return immediately to the emergency department for reevaluation. Please follow up with your primary care provider as soon as possible for reassessment and reevaluation. As always, it was a pleasure participating in your medical care today. Referrals: Ruperto Don, HEAD PIECE ASSEMBLER [Primary Care Provider] - Medical Decision Making This is a pleasant 27-year-old female with a past medical history of notable anxiety attacks that spontaneously/intermittently occur. She does take antianxiety and psychiatric medications for these. Unfortunately over the last 2 to 3 days she has had intermittent/persistent mild vomiting. She has had some difficulty keeping things down, including her medications. Patient also states that nausea and vomiting worsens her anxiety at baseline and precipitates anxiety attacks. Patient denies any abdominal pain, chest pain or shortness of breath. She denies any blood in her vomitus or stool. She states that this feels identical to her previous anxiety attacks. No other complaints at this time. No other modifying factors. Exam demonstrates well-appearing but notably anxious appearing female. Dry mucous membranes. Nontender abdomen. No pain at McBurney's point, negative Lopez sign. Anxiety notably worsens with the patient's nausea. Will give Zofran, rehydrate, check labs for dehydration, or electrolyte abnormality. Will give 2 mg of Ativan to help with the anxiety, monitor closely and reassess. 4:40 AM On reassessment patient is feeling much better. Nausea has resolved, she has tolerated p.o. trial. Laboratory work-up shows no white count bandemia or left shift. Anion gap slightly elevated at 16, electrolytes relatively stable aside from minimally elevated calcium. Patient was rehydrated with a liter of normal saline, and then an additional 500 was added on top. Lipase normal, negative. Patient tolerated p.o. and her anxiety has resolved. Patient feels comfortable going home. Symptoms consistent with mild enteritis clinically, and clinically inconsistent with pancreatitis, small bowel obstruction, cho lecystitis. Patient will be given Zofran for home use. Discussed red flags for which to return. I have extensively reviewed the treatment plan and discharge instructions with the patient and their family. I have addressed all patient concerns at this time. The patient and family was made aware of what symptoms to monitor for that would warrant a return to the emergency department. Discussed the plan with the patient and family, they demonstrate verbal understanding and agreement with our assessment and plan at this time. The documentation in this chart was dictated using [employer] dictation software. Please excuse any dictation errors. HPI General Date/Time Provider Initiated Documentation: 06/24/23 23:27 . HPI Narrative: This is a pleasant 27-year-old female with a past medical history of notable anxiety attacks that spontaneously/intermittently occur. She does take antianxiety and psychiatric medications for these. Unfortunately over the last 2 to 3 days she has had intermittent/persistent mild vomiting. She has had some difficulty keeping things down, including her medications. Patient also states that nausea and vomiting worsens her anxiety at baseline and precipitates anxiety attacks. Patient denies any abdominal pain, chest pain or shortness of breath. She denies any blood in her vomitus or stool. She states that this feels identical to her previous anxiety attacks. No other complaints at this time. No other modifying factors. Related Data Home Medications Medication Instructions Recorded Confirmed acetaminophen 325 mg tablet 650 mg PO Q4H PRN PRN #30 tabs 11/29/17 04/12/23 (Tylenol) dimenhydrinate 50 mg tablet 50 mg PO Q4H PRN nausea and 05/05/19 04/12/23 (Dramamine) vomiting melatonin 5 mg tablet 5 mg PO HS PRN 08/14/19 04/12/23 benzoyl peroxide 2.5 % topical gel 1 applic topical BID #1 g 02/02/22 04/12/23 methylphenidate HCl 5 mg tablet 5 mg PO DAILY #28 tabs 02/02/22 04/12/23 buspirone 15 mg tablet 7.5 mg PO BID #30 tabs 02/01/23 04/12/23 ondansetron 4 mg disintegrating 4 mg PO Q8H PRN nausea and 02/01/23 04/12/23 tablet vomiting #10 tabs ibuprofen 600 mg tablet 600 mg PO QID PRN pain #40 tabs 03/10/23 04/12/23 levonorgestrel 20.4 mcg/24 hrs (8 1 device intrauterine ONCE 03/10/23 04/12/23 yrs) 52 mg intrauterine device (Liletta) Previous Rx's Medication Instructions Recorded acetaminophen 325 mg tablet 650 mg PO Q4H PRN PRN #30 tabs 11/29/17 (Tylenol) benzoyl peroxide 2.5 % topical gel 1 applic topical BID #1 g 02/02/22 methylphenidate HCl 5 mg tablet 5 mg PO DAILY #28 tabs 02/02/22 buspirone 15 mg tablet 7.5 mg PO BID #30 tabs 02/01/23 ondansetron 4 mg disintegrating 4 mg PO Q8H PRN nausea and 02/01/23 tablet vomiting #10 tabs ibuprofen 600 mg tablet 600 mg PO QID PRN pain #40 tabs 03/10/23 Allergies Allergy/AdvReac Type Severity Reaction Status Date / Time lobster Allergy Other (See Uncoded 04/12/23 08:55 Comment) General Stated Complaint: Anxiety ZEUS: 4 Review of Systems All systems reviewed & are unremarkable except as noted in HPI and below PFSH All Active Problems (Updated 06/25/23 @ 00:42 by Hong Black DO) Anxiety (Chronic) Insomnia (Chronic) ADHD (attention deficit hyperactivity disorder) (Chronic) Vomiting (Acute) Medical History Acne 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 Maternal Grandfather No problems noted. Paternal Grandfather No problems noted. Maternal Grandmother No problems noted. Paternal Grandmother Diabetes Social History Smoking/Tobacco Use Status: Never Second Hand Exposure: Yes Smoking risk assessment performed?: Yes Alcohol Intake: current Alcohol Intake frequency: a few times a month Alcohol type: hard liquor Drug use: Never Substance use type: former substance user Counseling given: No Counseling provided: none Adopted: No Foster care: No Household members: friend(s) Housing: apartment Communication Needs: None Do you need help understanding health information?: Never Pets and animals: Yes Pets and animals: cat(s), dog(s) and snake(s) Sexually active: No Do you think of yourself as: asexual Current gender identity: neither exclusively male nor female What is your relationship status?: never How often do you talk on the phone with friends or family?: twice per week How often do you get together with friends or relatives?: three or more times per week Do you belong to any clubs or organized social groups?: no Panel score (0-1 are the most socially isolated patients): 1 What type of physical activity do you participate in: walking Duration: < 15 minutes/day Frequency: 1-2 times per week [place]/Presybeterian: SPIRITUAL Special saskia needs: No Seatbelt use: always Helmet use: Yes Helmet use: always Drive intox or ride w/intox dedicated truck driver: No Do you feel safe at home: Yes History History 0 Para Hx # Term Pregnancies Multiple births Hx # Pregnancies Ectopic pregnancies AB induced Hx Number of Living Children AB spontaneous Exam Narrative Exam Narrative: 1.Const: Well-nourished, Well-developed, appearing stated age 2.Eyes: PERRL, no conjunctival injection, and symmetrical lids. 3.ENT: Atraumatic external nose and ears. Dry MM. Neck: Symmetric, trachea midline, No thyromegaly. 4.CVS: +S1/S2, No murmurs or gallops. Peripheral pulses 2+ and equal in all extremities. Brisk capillary refill in all extremities. 5.RESP: Unlabored respiratory effort. Clear to auscultation bilaterally. No wheezes rales or rhonchi 6.GI: Soft, Nontender/Nondistended, No hepatosplenomegaly. No guarding or rebound. 7.MSK: Normocephalic/Atraumatic, Extremities w/o deformity or ttp No cyanosis or clubbing, Normal movement of all extremities 8.Skin: Warm, Dry. No rashes or lesions. 9.Neuro: adult protective caseworker II-XII grossly intact. Sensation grossly intact, no focal n eurologic deficits. 10.Psych: (AAO) x3. Appropriate mood and affect Course Vital Signs Vital signs: Vital Signs Temperature 36.8 C 06/24/23 23:26 Pulse 114 H 06/24/23 23:26 Respiratory Rate 06/24/23 23:26 Blood Pressure 116/72 06/24/23 23:26 Pulse Oximetry 100 06/24/23 23:26 Temperature 36.8 C 06/24/23 23:26 Pulse 114 H 06/24/23 23:26 Respiratory Rate 06/24/23 23:26 Respiratory Effort Incrsd Work of Breathing 06/24/23 23:30 Blood Pressure 116/72 06/24/23 23:26 Blood Pressure Position Sitting 06/24/23 23:26 Pulse Oximetry 100 06/24/23 23:26 Oxygen Delivery Method Room Air 06/24/23 23:26 Oxygen Flow Rate 0 06/24/23 23:26
[2023-06-24 23:54] LABS: Abs Immature Grans 0.02 10^3/uL (0.0-0.06); Absolute Basophil Count 0.04 10^3/uL (0.0-0.2); Absolute Eosinophil Count 0.01 10^3/uL (0.0-0.7); Absolute Monocyte Count 0.27 10^3/uL (0.1-0.8); Absolute Neutrophil Count 6.59 10^3/uL (1.2-6.7); Basophils % 0.5; Eosinophils % 0.1; HCT 43.9 % (36.0-46.0); Immature Grans % 0.2; Lymphocytes % 19.7; MCH 30.4 pg (27.0-33.0); MCHC 34.2 % (32.0-36.0); MCV 89 fL (80-95); MPV 9.5 fL (8.0-11.0); Monocytes % 3.1; Neutrophils % 76.4; Platelet Count 363 10^3/uL (130-400); RBC 4.93 10^6/uL (3.93-5.22); RDW 12.1 % (11.7-14.6); RDW-SD 39.6 fL; WBC 8.63 10^3/uL (4.4-10.8)
[2023-06-25 00:12] LABS: ALT 12 U/L (14-59); AST 12 U/L (15-37); Albumin 5.2 g/dL (3.4-5.0); Alkaline Phosphatase 61 U/L (46-116); BUN 10 mg/dL (7-18); Bilirubin, Total 0.5 mg/dL (0.2-1.0); CREATININE 0.8 mg/dL (0.55-1.02); Calcium 10.3 mg/dL (8.5-10.1); Chloride 100 mmol/L (98-107); Estimated GFR 104.15 (mL/min/1.73m2); Glucose 119 mg/dL (74-106); Lipase 50 U/L (16-77); Sodium 137 mmol/L (136-145); Total Protein 8.4 g/dL (6.4-8.2)
[2023-06-25 00:30] VITALS: BP 101/64; PULSE 74; RESP 13; O2SAT 100
[2023-06-25 00:31] LABS: HCG Quant, Pregnancy < 1 mIU/mL (1-3)
[2023-06-25] MEDS: Normal Saline 500 ML IV (00:43)
[2023-06-25 01:30] VITALS: BP 101/62; PULSE 72; RESP 12; O2SAT 99
[2023-06-25] MEDS: Ondansetron O.D.T. 4 MG TABEF, 3 TABS/BTL PO (01:30)
== END 2023-06-25 01:29 | disposition home or self-care (01) ==
PROVIDERS: Emergency Provider Student in an Organized Health Care Education/Training Program; PCP Nurse Practitioner Family
DX: F41.9 Anxiety disorder, unspecified (principal); R11.10 Vomiting, unspecified
CPT/HCPCS: 80053; 83690; 96361; 96374; 99284; 84702; 85025; J2060

== ENCOUNTER 2024-02-04 14:39 | Outpatient (REF) | payer MEDICAID, SELFPAY ==
--- NOTE | 2024-02-04 09:00 | PAPFT_PTH ---
PATIENT: Flaca Cuevas LOC: [facility] U#:[id number] AGE/SX: 28/F ROOM: RE02/04/[address]: Ruperto Harris DNP : 1995 BED: DIS: 02/04/2024 SPEC #: [id number] RECD: 02/04/24 18:54 STATUS: AKANKSHA REEmma #: [id number] MIGUEL ANGEL: 02/04/24 09:[address]: Ruperto Don DEPT: [facility] Cytology RECD BY: Zoë Sheth Tissues: 1 - CX/ENDOCX FOR PAP SMEARS Procedures: PAP THIN PREP/UVM Screening Comments: [id number]
== END 2024-02-04 14:40 | disposition home or self-care (01) ==
LOC: LBN 14:39
PROVIDERS: PCP Nurse Practitioner Family; Referring Provider Nurse Practitioner Family; Visit Provider Nurse Practitioner Family
DX: Z12.4 Encounter for screening for malignant neoplasm of cervix (principal)
CPT/HCPCS: 88142

== ENCOUNTER 2024-05-12 10:13 | Emergency (ER) | payer MEDICAID, SELFPAY ==
[2024-05-12 10:25] VITALS: BP 124/73; PULSE 91; RESP 26; TEMP 36.1; O2SAT 100
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
[2024-05-12] MEDS: LORazepam 2 MG/ML VIAL 1 MG IM (11:17)
[2024-05-12 11:19] VITALS: RESP 26
[2024-05-12 11:28] VITALS: BP 109/75; PULSE 85; RESP 20; TEMP 36.3; O2SAT 98
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
[2024-05-12 12:56] VITALS: BP 124/73; PULSE 68; RESP 16; TEMP 36.3; O2SAT 98
== END 2024-05-12 12:59 | disposition home or self-care (01) ==
PROVIDERS: Emergency Provider Student in an Organized Health Care Education/Training Program; PCP Nurse Practitioner Family
DX: F41.0 Panic disorder [episodic paroxysmal anxiety] (principal); F41.9 Anxiety disorder, unspecified
CPT/HCPCS: 96372; 99284; 99283; J2060

== ENCOUNTER 2024-05-30 04:32 | Emergency (ER) | payer MEDICAID, SELFPAY ==
[2024-05-30] VITALS (16 sets, daily range): BP systolic 89–101; BP diastolic 45–63; PULSE 76–110; RESP 18–28; TEMP 36.9; O2SAT 97–100
--- NOTE | 2024-05-30 04:40 | W.ED.GENAD ---
Discharge Plan Disposition Patient Disposition: Home Condition: Good Discharge Details Clinical Impression: Anxiety, Nausea & vomiting Primary Care Provider: Ruperto Don ED Provider: Hong Black Home Meds and New Rx's Prescriptions: No Action melatonin 5 mg tablet 5 mg PO HS PRN dimenhydrinate [Dramamine] 50 mg tablet 50 mg PO Q4H PRN (Reason: nausea and vomiting) Liletta 20.4 mcg/24 hrs (8 yrs) 52 mg intrauterine device 1 device intrauterine ONCE Rx Instructions: as a single dose benzoyl peroxide 2.5 % gel 1 applic topical BID Qty: 1 6RF methylphenidate HCl 5 mg tablet 5 mg PO DAILY MDD 5mg Qty: 28 0RF Rx Instructions: Take 5mg in AM ondansetron 4 mg tablet,disintegrating 4 mg PO Q8H PRN (Reason: nausea and vomiting) Qty: 10 1RF buspirone 15 mg tablet 7.5 mg PO BID PRN (Reason: anxiety) Qty: 30 1RF acetaminophen [Tylenol] 325 MG tablet 650 mg PO Q4H PRN PRNQty: 30 0RF ibuprofen 600 mg tablet 600 mg PO QID MDD 4 doses PRN (Reason: pain) Qty: 40 0RF Rx Instructions: take with food Discharge Instructions Instructions: Anxiety, Adult ED, Nausea and Vomiting, Adult ED Additional Instructions: Please drink plenty of fluids and stay well-hydrated. Stick with a bland mild diet for the next 24 to 48 hours. Please take your Zofran as needed. Please take Tums or Pepto-Bismol if you have any additional upset stomach. Avoid spicy foods greasy foods or tomato-based products for the next 48 hours. If you notice any worsening of your symptoms, or any new symptoms such as vomiting, diarrhea, fever, chills, shortness of breath, chest pain, numbness, weakness, or fainting , please return immediately to the emergency department for reevaluation. Please follow up with your primary care provider as soon as possible for reassessment and reevaluation. As always, it was a pleasure participating in your medical care today. Referrals: Ruperto Don, COMM[employer] WORK[employer] [Primary Care Provider] - Discharge Data Discharge Date/Time-TO BE ENTERED AT DEPARTURE: 05/30/24 06:36 HPI General Date/Time Provider Initiated Documentation: 05/30/24 04:34. HPI Narrative: This is a pleasant 28-year-old female with a past medical history of panic attacks that usually occur spontaneously and intermittently, and are usually associated with nausea and vomiting. She presents today for panic attack and nausea and vomiting. Patient states that for the last few days she has been very nervous and anxious because she is moving, losing her roommate, and having multiple stable components of her life upended. This morning she felt somewhat nauseous and has not eaten much throughout the day but did take her daily buspirone on some saltine crackers and peanut butter. Unfortunately throughout the day she became more nauseous and had more episodes of vomiting, and she got increasingly anxious and worried about the future. She denies any blood in her vomit. She admits to mild stomach achiness. She denies any fever or chills. No alcohol. No diarrhea. No other complaints at this time. Related Data Home Medications ?Medication ?Instructions ?Recorded ?Confirmed acetaminophen 325 mg tablet 650 mg (2 x 325 mg) PO Q4H PRN PRN 11/29/17 05/30/24 (Tylenol) #30 tabs dimenhydrinate 50 mg tablet 50 mg PO Q4H PRN nausea and 05/05/19 05/30/24 (Dramamine) vomiting melatonin 5 mg tablet 5 mg PO HS PRN 08/14/19 05/30/24 benzoyl peroxide 2.5 % topical gel 1 applic topical BID #1 g 02/02/22 05/30/24 methylphenidate HCl 5 mg tablet 5 mg PO DAILY #28 tabs 02/02/22 05/30/24 ibuprofen 600 mg tablet 600 mg PO QID PRN pain #40 tabs 03/10/23 05/30/24 levonorgestrel 20.4 mcg/24 hr (up 1 device intrauterine ONCE 03/10/23 05/30/24 to 8 yrs) 52 mg intrauterine device (Liletta) buspirone 15 mg tablet 7.5 mg (1/2 x 15 mg) PO BID PRN 02/04/24 05/30/24 anxiety #30 tabs ondansetron 4 mg disintegrating 4 mg PO Q8H PRN nausea and 02/04/24 05/30/24 tablet vomiting #10 tabs Previous Rx's ?Medication ?Instructions ?Recorded acetaminophen 325 mg tablet 650 mg (2 x 325 mg) PO Q4H PRN PRN 11/29/17 (Tylenol) #30 tabs benzoyl peroxide 2.5 % topical gel 1 applic topical BID #1 g 02/02/22 methylphenidate HCl 5 mg tablet 5 mg PO DAILY #28 tabs 02/02/22 ibuprofen 600 mg tablet 600 mg PO QID PRN pain #40 tabs 03/10/23 buspirone 15 mg tablet 7.5 mg (1/2 x 15 mg) PO BID PRN 02/04/24 anxiety #30 tabs ondansetron 4 mg disintegrating 4 mg PO Q8H PRN nausea and 02/04/24 tablet vomiting #10 tabs Allergies Allergy/AdvReac Type Severity Reaction Status Date / Time lobster Allergy Other (See Uncoded 05/30/24 04:39 Comment) General Stated Complaint: Anxiety ZEUS: 3 Review of Systems All systems reviewed & are unremarkable except as noted in HPI and below Exam Narrative Exam Narrative: 1.Const: Well-nourished, Well-developed, appearing stated age 2.Eyes: PERRL, no conjunctival injection, and symmetrical lids. 3.ENT: Atraumatic external nose and ears. Dry MM. Neck: Symmetric, trachea midline, No thyromegaly. 4.CVS: +S1/S2, No murmurs or gallops. Peripheral pulses 2+ and equal in all extremities. Brisk capillary refill in all extremities. 5.RESP: Unlabored respiratory effort. Clear to auscultation bilaterally. No wheezes rales or rhonchi 6.GI: Soft, Nontender/Nondistended, No hepatosplenomegaly. No guarding or rebound. 7.MSK: Normocephalic/Atraumatic, Extremities w/o deformity or ttp No cyanosis or clubbing, Normal movement of all extremities 8.Skin: Warm, Dry. No rashes or lesions. 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 Sensation grossly intact, no focal neurologic deficits. 10.Psych: (AAO) x3. Notably nervous and anxious Course Vital Signs Vital signs: Vital Signs Temperature 36.9 C 05/30/24 04:35 Pulse 110 H 05/30/24 04:35 Respiratory Rate 24 05/30/24 04:35 Blood Pressure 100/45 L 05/30/24 04:35 Pulse Oximetry 100 05/30/24 04:35 Temperature 36.9 C 05/30/24 04:35 Temperature Source Temporal Artery Scan 05/30/24 04:35 Pulse 110 H 05/30/24 04:35 Respiratory Rate 24 05/30/24 04:35 Blood Pressure 100/45 L 05/30/24 04:35 Blood Pressure Position Sitting 05/30/24 04:35 Pulse Oximetry 100 05/30/24 04:35 Oxygen Delivery Method Room Air 05/30/24 04:35 Oxygen Flow Rate 0 05/30/24 04:35 Medical Decision Making This is a pleasant 28-year-old female with a past medical history of panic attacks that usually occur spontaneously and intermittently, and are usually associated with nausea and vomiting. She presents today for panic attack and nausea and vomiting. Patient states that for the last few days she has been very nervous and anxious because she is moving, losing her roommate, and having multiple stable components of her life upended. This morning she felt somewhat nauseous and has not eaten much throughout the day but did take her daily buspirone on some saltine crackers and peanut butter. Unfortunately throughout the day she became more nauseous and had more episodes of vomiting, and she got increasingly anxious and worried about the future. She denies any blood in her vomit. She admits to mild stomach achiness. She denies any fever or chills. No alcohol. No diarrhea. No other complaints at this time. Exam demonstrates very anxious nervous female with dry mucous membranes, no signs of an acute surgical abdomen on exam, no other concerning abnormalities. Patient is afebrile. Differential is highest for panic attack, pancreatitis gastroenteritis, gastric ulcer less likely. We will give Carafate Zofran and a GI cocktail, give a small dose of Valium IV, rehydrate monitor closely and reassess. No indication for emergent imaging at this time. 6:25 AM On reassessment the patient feels much better, her anxiety has near completely resolved. She has received a liter of resuscitative fluids. She feels well and is requesting discharge. Patient will be discharged home. No evidence of an acute surgical abdomen or other concerning etiologies at this time. Will give some Zofran for home use. Discussed red flags for which to return. I have extensively reviewed the treatment plan and discharge instructions with the patient. I have addressed all patient concerns at this time. The patient was made aware of what symptoms to monitor for that would warrant a return to the emergency department. Discussed the plan with the patient, they demonstrate verbal understanding and agreement with our assessment and plan at this time. The documentation in this chart was dictated using [employer] dictation software. Please excuse any dictation errors. 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 Maternal Grandfather No problems noted. Paternal Grandfather No problems noted. Maternal Grandmother No problems noted. Paternal Grandmother Diabetes Social History Smoking/Tobacco Use Status: Never Second Hand Exposure: Yes Smoking risk assessment performed?: Yes Alcohol Intake: never Drug use: Occasionally Substance use type: former substance user and marijuana Counseling given: No Counseling provided: none Adopted: No Foster care: No Household members: friend(s) Housing: apartment Communication Needs: None Do you need help understanding health information?: Never Pets and animals: Yes Pets and animals: cat(s), dog(s) and snake(s) Sexually active: No Do you think of yourself as: asexual Current gender identity: neither exclusively male nor female What is your relationship status?: never How often do you talk on the phone with friends or family?: twice per week How often do you get together with friends or relatives?: three or more times per week Do you belong to any clubs or organized social groups?: no Panel score (0-1 are the most socially isolated patients): 1 What type of physical activity do you participate in: walking Duration: < 15 minutes/day Frequency: 1-2 times per week [place]/Hinduism: SPIRITUAL Special saskia needs: No Seatbelt use: always Helmet use: Yes Helmet use: always Drive intox or ride w/intox transporter driver: No Do you feel safe at home: No Do you feel safe in your relationship?: Yes History History 0 Para Hx # Term Pregnancies Multiple births Hx # Pregnancies Ectopic pregnancies AB induced Hx Number of Living Children AB spontaneous
[2024-05-30] MEDS: Lactated Ringers 1,000 ML 1000 ML IV (04:49)
[2024-05-30] MEDS: Ondansetron 4 MG/2 ML VIAL IVP ×2 (04:50→06:01)
[2024-05-30] MEDS: diazePAM 10 MG/2 ML SYR 5 MG IVP (04:50)
[2024-05-30 04:58] LABS: Abs Immature Grans 0.02 10^3/uL (0.0-0.06); Absolute Basophil Count 0.05 10^3/uL (0.0-0.2); Absolute Eosinophil Count 0.04 10^3/uL (0.0-0.7); Absolute Lymphocyte Count 2.56 10^3/uL (1.2-3.4); Absolute Monocyte Count 0.41 10^3/uL (0.1-0.8); Absolute Neutrophil Count 3.13 10^3/uL (1.2-6.7); Basophils % 0.8 %; Eosinophils % 0.6 %; HCT 40.5 % (36.0-46.0); HGB 13.5 g/dL (11.2-15.7); Immature Grans % 0.3 %; Lymphocytes % 41.2 %; MCH 30.5 pg (27.0-33.0); MCHC 33.3 % (32.0-36.0); MCV 92 fL (80-95); MPV 9.8 fL (8.0-11.0); Monocytes % 6.6 %; Neutrophils % 50.5 %; Platelet Count 332 10^3/uL (130-400); RBC 4.42 10^6/uL (3.93-5.22); RDW 12.1 % (11.7-14.6); RDW-SD 40.5 fL; WBC 6.21 10^3/uL (4.4-10.8)
[2024-05-30] MEDS: Ondansetron O.D.T. 4 MG TABEF, 3 TABS/BTL PO (06:36)
[2024-05-30 07:11] LABS: ALT 17 U/L (14-59); AST 17 U/L (15-37); Albumin 4.7 g/dL (3.4-5.0); Alkaline Phosphatase 57 U/L (46-116); Anion Gap 19.7 mmol/L (3-11); BUN 17 mg/dL (7-18); Bilirubin, Total 1.06 mg/dL (0.2-1.0); CO2 17.3 mmol/L (21.0-32.0); Calcium 9.3 mg/dL (8.5-10.1); Chloride 105 mmol/L (98-107); Estimated GFR 79.19 (mL/min/1.73m2); Glucose 85 mg/dL (74-106); Lipase 22 U/L (16-77); Potassium 3.9 mmol/L (3.5-5.1); Sodium 142 mmol/L (136-145); Total Protein 7.8 g/dL (6.4-8.2)
== END 2024-05-30 06:36 | disposition home or self-care (01) ==
PROVIDERS: Emergency Provider Student in an Organized Health Care Education/Training Program; PCP Nurse Practitioner Family
DX: F41.0 Panic disorder [episodic paroxysmal anxiety] (principal); R11.2 Nausea with vomiting, unspecified
CPT/HCPCS: 36415; 80053; 81025; 83690; 96361; 96374; 96375; 96376; 99284; 85025; J2405; J3360